=== PATIENT | female | born 1980 | race Caucasian/White ===

== ENCOUNTER 2017-02-24 10:21 | Emergency (ER) | payer MEDICAID ==
[~2017-02-24] VITALS: Ht 165.1 cm; Wt 40.8 kg
--- NOTE | 2017-02-24 10:38 | NUR ---
PT IS IN ROOM #2A. DR JONAS EVALUATED THE PT.
[2017-02-24] MEDS ORDERED: ONDANSETRON IV *ER 4 MG/2 ML VIAL IV ONE (10:45)
[2017-02-24] MEDS ORDERED: MORPHINE SULFATE 2 MG/1 ML DISP.SYRIN IV ONE (10:45)
[2017-02-24 10:59] LABS: BASOPHILS % (AUTO) 0.4 % (0.0-2.0); EOSINOPHILS % (AUTO) 0.8 % (0.0-7.0); HEMATOCRIT 38.5 % (37-47); HEMOGLOBIN 12.8 G/DL (12.0-16.0); LYMPHOCYTES # (AUTO) 1.4 K/UL (0.8-4.8); LYMPHOCYTES % (AUTO) 33.5 % (20.5-51.5); MEAN CORPUSCULAR HEMOGLOBIN 30.4 UUG (27.0-31.0); MEAN CORPUSCULAR HGB CONC 33 g/dL (32.0-37.0); MONOCYTES # (AUTO) 0.2 K/UL (0.1-1.30); MONOCYTES % (AUTO) 5.6 % (0.0-11.0); NEUTROPHILS # (AUTO) 2.6 K/UL (1.8-8.9); NEUTROPHILS % (AUTO) 59.7 % (38.5-71.5); PLATELET COUNT (AUTO) 176 K/UL (150-450); RED BLOOD CELL COUNT(AUTO) 4.19 MIL/UL (4.2-5.4); WHITE BLOOD COUNT (AUTO) 4.2 K/UL (4.0-11.2)
[2017-02-24] MEDS ORDERED: ONDANSETRON 4 MG/2 ML VIAL ONE (10:59)
[2017-02-24] MEDS ORDERED: MORPHINE SULFATE 4 MG/1 ML DISP.SYRIN ONE (10:59)
[2017-02-24 11:06] LABS: CREATININE 0.8 mg/dL (0.6-1.3); POTASSIUM 4.4 mmol/L (3.5-5.1)
[2017-02-24 11:12] LABS: BILIRUBIN,DIRECT 0.1 mg/dL (0.0-0.2); BILIRUBIN,TOTAL 0.5 mg/dL (0.2-1.0); TOTAL PROTEIN, SERUM 6.6 g/dL (6.4-8.2)
[2017-02-24] MEDS ORDERED: IBUPROFEN 600 MG TABLET PO ONE (12:00)
[2017-02-24] MEDS ORDERED: IBUPROFEN 600 MG TABLET ONE (12:14)
[2017-02-24] MEDS ORDERED: IV NS 1000 ML 1,000 ML IV ONE (12:15)
--- NOTE | 2017-02-24 13:21 | NUR ---
PT WAS D/C TO HOME. D/C INSTRUCTIONS GIVEN TO THE PT.
[2017-02-24 13:23] VITALS: BP 118/81
== END 2017-02-24 13:25 | disposition home or self-care (01) ==
LOC: ER 10:23
DX: S00.03XA Contusion of scalp, initial encounter (principal); S80.211A Abrasion, right knee, initial encounter; R51 Headache; F32.9 Major depressive disorder, single episode, unspecified; W18.30XA Fall on same level, unspecified, initial encounter; Y93.89 Activity, other specified; Y99.8 Other external cause status; Y92.89 Other specified places as the place of occurrence of the external cause
CPT/HCPCS: 36415; 70450; 72170; 73560; 73630; 84703; 85025; 86850; 86900; 86901; A4663; J2270; J2405; J7030